=== PATIENT | male | born 1985 | race Caucasian/White ===

== ENCOUNTER 2017-04-28 21:37 | Emergency (ER) | payer OTHER, SELFPAY ==
[2017-04-28 21:38] VITALS: BP 151/81; PULSE 107; RESP 14; TEMP 38.4; O2SAT 96; BMI 42.5
--- NOTE | 2017-04-28 23:29 | ED.DCSUM_ITS ---
- ER Visit Summary Date of Service: 04/28/17 Chief Complaint: Sore throat and fever History of Present Illness: The patient is a 31 M presenting for evaluation secondary to sore throat and fever. Patient states that this started yesterday evening at approximately 10:00. Patient states that he has had fever and sore throat and some difficulty with swallowing. Denies any cough. Denies any nausea vomiting diarrhea skin rashes headache or neck stiffness. Patient states that he does get frequent strep throat. Review of systems otherwise negative. Physical Examination: Vital signs notable for temperature of 101.1 heart rate of 107 normal blood pressure normal oxygenation. Well-nourished male no acute distress. Head normocephalic. Nose normal to inspection. Oropharynx shows tonsillar swelling, exudates, and erythema. There is anterior bilateral cervical lymphadenopathy that is minimally tender. Heart regular lungs clear. Remainder physical otherwise unremarkable. Test Results: None indicated Emergency Department Course and Treatment: Patient presented with sore throat. Physical exam most consistent with strep pharyngitis. Patient will be treated with penicillin and Naprosyn as an outpatient. Disposition: Discharge Impression: 1. Strep pharyngitis This note was generated with [employer] dictation software. It may contain incorrect words, spelling, and punctuation that were not noted in review of the chart prior to signing ED Disposition - Plan for ED Patient: Disposition: Home or Assisted Living Chief Complaint: Fever Diagnosis: Strep pharyngitis Instructions: ED Strep Pharyngitis Conf Prescriptions: Naproxen [Naprosyn] 500 mg PO BID PRN #20 tab Penicillin V Potassium 500 mg PO 4X/DAY #40 tab Additional Instructions: Followup with your PCP as needed
[2017-04-28] MEDS: Naproxen 500 MG Tablet PO (23:36)
[2017-04-28] MEDS: Penicillin Vk 250 MG Tablet 500 MG PO (23:36)
[2017-04-28 23:40] VITALS: RESP 18
== END 2017-04-28 23:40 | disposition home or self-care (01) ==
LOC: ED 23:35
PROVIDERS: Emergency Provider Emergency Medicine
DX: J02.0 Streptococcal pharyngitis (principal); Z72.0 Tobacco use
CPT/HCPCS: 99283

== ENCOUNTER 2019-03-08 04:53 | Emergency (ER) | payer OTHER, SELFPAY ==
[2019-03-08 04:55] VITALS: BP 157/122; PULSE 70; RESP 20; TEMP 36.4; O2SAT 98; BMI 45.5
--- NOTE | 2019-03-08 05:12 | RAD_ITS ---
HISTORY: PATIENT TWISTED FOOT LAST NIGHT TRYING TO TAKE [employer] DECORATIONS DOWN. C/O PAIN MIDDLE OF RIGHT FOOT COMPARISON: None FINDINGS: # of images incl. paperwork: 3 XR Foot Min 3 Views : No fracture or subluxation. No osseous or soft tissue abnormality. The joint spaces are well-maintained. No radiopaque foreign body is seen. RAD/Foot min 3 Views IMPRESSION: Normal right foot. at 6025 Reported and signed by: Kristofer Kellogg MD Electronically Signed: Kristofer Kellogg MD at 5:25 EST Tel , Service support ,
--- NOTE | 2019-03-08 05:13 | ED.VIS.GEN ---
History of Present Illness Chief Complaint: Lower Extremity Injury Informant: Patient Narrative: Stated that he twisted his right foot yesterday taking down [employer] decorations. It hurts to move on it. No significant home treatment. Wants to make sure he did not fracture it. Thinks he might have sprained it. No previous injury. Current severity is mild. Worse by movement Past Medical History - Allergies and Home Meds Allergies/Adverse Reactions: Allergies No Known Allergies Allergy (Verified 03/08/19 04:54) Primary Care Physician: NOT,DEFINED [NON-STAFF] - Prior records reviewed: Yes Past Medical History: None Surgical History: noncontributory Smoking Status: Heavy Smoker (>10/day) Drugs: None Review of Systems General: Denies: Chills, Fever, Sweats Eyes: Denies: Visual changes - bilaterally, Diplopia ENT: Denies: Rhinorrhea, Sore throat Cardiovascular: Denies: Chest pain, Palpitations Respiratory: Denies: Dyspnea, Cough, Dyspnea on exertion Gastrointestinal: Denies: Abdominal pain, Nausea, Vomiting, Diarrhea, Melena, Hematochezia Genitourinary: Denies: Dysuria, Hematuria, Frequency Musculoskeletal: Reports: Extremity Pain. Denies: Back pain Skin: Denies: Rash, Wounds Neurological: Denies: Headache, Weakness, Numbness Physical Exam Vital Signs/Narrative: Vital Signs Temp Pulse Resp BP Pulse Ox 03/08/19 04:55 97.6 F L 70 20 H 157/122 H 98 General: Well nourished, Well developed, No Acute Distress Head: Normocephalic, Atraumatic Eyes: Perrl, EOMI ENT: Moist mucous membranes, No rhinorrhea Neck: Supple, Nontender Cardiovascular: Regular rate, Regular rhythm, No murmurs Respiratory: No distress, CTA bilaterally, Chest nontender Abdomen: Soft, Nontender, Nondistended, Normal bowel sounds Back: Nontender, Normal Inspection Extremities: No edema, Tenderness - Tenderness on the distal forefoot. No swelling or deformity. Mild decreased range of motion secondary to pain. Negative for: Nontender Skin: Normal color, No rash Neurological: Alert, Oriented x3, Cranial nerves II-XII grossly intact, Normal Strength, Normal Sensation Psychological: Normal affect, Normal Mood Diagnostic/Tx/Re-eval - Medical Decision Making X-ray obtained of the right foot. He did not want any thing for pain. X-ray negative. At this time I feel he sprained his foot. Given Conrad wrap postop shoe. Will rest and ice and follow-up ED Disposition - Plan for ED Patient: Disposition: Home or Assisted Living Diagnosis: Sprain of foot, right Instructions: Sprain Foot Referrals: NOT,DEFINED [NON-STAFF] -
[2019-03-08 06:14] VITALS: BP 155/99; PULSE 88; RESP 17; O2SAT 96
== END 2019-03-08 06:16 | disposition home or self-care (01) ==
PROVIDERS: Emergency Provider Emergency Medicine
DX: S93.601A Unspecified sprain of right foot, initial encounter (principal); X50.1XXA Overexertion from prolonged static or awkward postures, initial encounter; Y93.9 Activity, unspecified; Y92.9 Unspecified place or not applicable; F17.200 Nicotine dependence, unspecified, uncomplicated
CPT/HCPCS: 73630; 99284